=== PATIENT | female | born 1980 | race Caucasian/White ===

== ENCOUNTER 2017-08-11 20:50 | Emergency (ER) | payer OTHER ==
[2017-08-11 21:11] VITALS: BP 129/88
[2017-08-11] MEDS ORDERED: Tetracaine 0.5% OPTH.SOL 4 ML* 1 DROP BTL ONE (21:37)
[2017-08-11] MEDS ORDERED: Fluorescein Sodium TOPICAL* 1 MG TEST ONE (21:37)
[2017-08-11] MEDS ORDERED: Fluorescein Sodium TOPICAL* 1 MG TEST OPHTHALMIC ONE (21:40)
[2017-08-11] MEDS ORDERED: Tetracaine 0.5% OPTH.SOL 4 ML* 1 DROP BTL RIGHT EYE ONE (21:40)
--- NOTE | 2017-08-11 21:56 | ED ---
Throat Pain/Nasal Congestion - HPI Summary HPI Summary: 37 yr old with complaint of right eye pain, moderate intensity, since waking this morning. she states she has throbbing pain in the eye. She does not wear contact lenses. She has had bilateral lens replacements at a young age. She denies drainage. denies watering. Denies blurred vision. No family history of glaucoma. - History of Current Complaint Chief Complaint: UCEye Time Seen by Provider: 08/11/17 21:27 - Allergies/Home Medications Allergies/Adverse Reactions: Allergies Allergy/AdvReac Type Severity Reaction Status Date / Time Adhesive Tape Allergy Unknown Verified 08/11/17 21:11 Reaction Details Oxycodone [From Percocet] AdvReac Vomiting Verified 08/11/17 21:11 STERI STRIPS Allergy Blisters Uncoded 08/11/17 21:11 PMH/Surg Hx/FS Hx/Imm Hx Endocrine/Hematology History: Denies: Hx Diabetes, Hx Thyroid Disease Cardiovascular History: Denies: Hx Hypertension, Other Cardiovascular Problems/Disorders Respiratory History: Denies: Hx Asthma, Other Respiratory Problems/Disorders GI History: Denies: Other GI Disorders Musculoskeletal History: Reports: Hx Tendonitis - RIGHT THUMB Sensory History: Reports: Hx Cataracts - BILATERAL, Hx Contacts or Glasses - GLASSES Denies: Hx Hearing Aid Opthamlomology History: Reports: Hx Cataracts - BILATERAL, Hx Contacts or Glasses - GLASSES Neurological History: Denies: Other Neuro Impairments/Disorders Psychiatric History: Reports: Hx Anxiety - ON MEDS, Hx Depression - ON MEDICATION FOR - Surgical History Surgery Procedure, Year, and Place: ovarian cyst, 03/2013, [facility]. gall bladder, 2001, [facility]. L4/5 discectomy-11/2013-[facility]. uterine bIOPSY X 2. 03/28/14, right ankle fx, [facility]. 11/2015 - screws removed from right ankle (from previous fx) Hx Anesthesia Reactions: Yes - MEMORY LOSS Infectious Disease History: No Infectious Disease History: Denies: Traveled Outside the [place] in Last 30 Days - Family History Known Family History: Positive: Hypertension, Diabetes - Social History Alcohol Use: None Alcohol Amount: 2-3 DRINKS/WEEK Substance Use Type: Reports: None Substance Use Comment - Amount & Last Used: LAST USED 11/12/12 Smoking Status (MU): Heavy Every Day Tobacco Smoker Type: Cigarettes Amount Used/How Often: 1 PPD Length of Time of Smoking/Using Tobacco: APPROX 15 YRS Have You Smoked in the Last Year: Yes Review of Systems Positive: Erythema, Other - pain. Negative: Photophobia, Blurred Vision, Diplopia, Drainage Positive: Headache All Other Systems Reviewed And Are Negative: Yes Physical Exam Triage Information Reviewed: Yes Vital Signs On Initial Exam: Initial Vitals Temp Pulse Resp BP Pulse Ox 98.3 F 78 16 129/88 100 08/11/17 21:07 08/11/17 21:07 08/11/17 21:07 08/11/17 21:07 08/11/17 21:07 Vital Signs Reviewed: Yes Appearance: Positive: Well-Appearing, No Pain Distress Skin: Positive: Warm, Skin Color Reflects Adequate Perfusion Head/Face: Positive: Normal Head/Face Inspection Eyes: Positive: EOMI, WENDY, Conjunctiva Inflammed - laterally, no drainage., Other: - no flouroscein uptake in right eye. There is slight cloudy appearance to cornea. ENT: Positive: Pharynx normal Respiratory/Lung Sounds: Positive: Clear to Auscultation Cardiovascular: Positive: RRR. Negative: Murmur Abdomen Description: Negative: Distended Musculoskeletal: Positive: Strength/ROM Intact Neurological: Positive: Sensory/Motor Intact, Alert, Oriented to Person Place, Time, CN Intact II-III, Normal Gait Psychiatric: Positive: Normal Diagnostics - Vital Signs Vital Signs Temp Pulse Resp BP Pulse Ox 08/11/17 21:07 98.3 F 78 16 129/88 100 - Laboratory Lab Statement: Any lab studies that have been ordered have been reviewed, and results considered in the medical decision making process. EENT Course/Dx - Course Course Of Treatment: 37 yr old with pain and redness to eye without drainage. She signed ama refusal of transfer by ambulance to [facility]. I contacted transfer center and they will see patient. - Diagnoses Provider Diagnoses: Pain, eye, right Discharge - Discharge Plan Condition: Good Disposition: AGAINST MEDICAL ADVICE
== END 2017-08-11 21:58 | disposition left against medical advice (07) ==
LOC: UCCORT 20:50
DX: H92.01 Otalgia, right ear (principal); Z88.6 Allergy status to analgesic agent; Z91.048 Other nonmedicinal substance allergy status
CPT/HCPCS: 99212; A9270-GY; G0463

== ENCOUNTER 2018-07-15 08:29 | Emergency (ER) | payer OTHER ==
[2018-07-15 09:01] VITALS: BP 139/81
[2018-07-15] MEDS: Ibuprofen TAB* 600 MG PO ONE (09:42)
--- NOTE | 2018-07-15 10:22 | UC ---
Lower Extremity/Ankle HPI - HPI Summary HPI Summary: 38 year old with b/l foot pain. Right greater than left foot pain onset last eves/p fall down about 4 steps; increased pain with WB. Hx on right ankle fx 2012. Pain on right is at lateral metatarsal area, pain on left is mostly at great toe. Left arm, inner thigh bruising is more minor. Fall at home about 9 pm or so . no LOC no head trauma or other sinificant trauma. pain right foot 5/ 10 and left foot 8/10. difficulty walking and ambulating. - History of Current Complaint Chief Complaint: UCLowerExtremity Stated Complaint: SKIN COMPLAINT BILATERAL FEET Time Seen by Provider: 07/15/18 09:38 Hx Obtained From: Patient Hx Last Menstrual Period: 07/04/18 Onset/Duration: Sudden Onset Pain Intensity: 2 Aggravating Factor(s): Standing, Ambulation Alleviating Factor(s): Rest, Elevation Able to Bear Weight: Yes - Allergies/Home Medications Allergies/Adverse Reactions: Allergies Allergy/AdvReac Type Severity Reaction Status Date / Time Adhesive Tape Allergy Unknown Verified 08/11/17 21:11 Reaction Details oxycodone [From Percocet] Allergy Vomiting Verified 07/15/18 09:03 STERI STRIPS Allergy Blisters Uncoded 08/11/17 21:11 Home Medications: Home Medications Copper (Iud) [Paragard IUD] 1 unit IU DAILY 07/15/18 [History Confirmed 07/15/18 ] PMH/Surg Hx/FS Hx/Imm Hx Previously Healthy: Yes - Surgical History Surgical History: Yes Surgery Procedure, Year, and Place: ovarian cyst, 03/[facility], [facility]. gall bladder, 2001, [facility]. L4/5 discectomy-11/2013-[facility]. uterine bIOPSY X 2. 03/28/14, right ankle fx, [facility]. 11/2015 - screws removed from right ankle (from previous fx); right trigger thumb 2012, cataracts 2012. - Family History Known Family History: Positive: Hypertension, Diabetes - Social History Occupation: Employed Full-time Alcohol Use: Weekly Alcohol Amount: 2-3 DRINKS/WEEK Substance Use Type: None Substance Use Comment - Amount & Last Used: LAST USED 11/12/12 Smoking Status (MU): Heavy Every Day Tobacco Smoker Type: Cigarettes Amount Used/How Often: 1 PPD Length of Time of Smoking/Using Tobacco: APPROX 15 YRS Have You Smoked in the Last Year: Yes Household Exposure Type: Cigarettes - Immunization History Most Recent Influenza Vaccination: 2011 Most Recent Tetanus Shot: UNKNOWN Most Recent Pneumonia Vaccination: NEVER Review of Systems Motor: Decreased ROM Neurovascular: Negative Musculoskeletal: Arthralgia, Decreased ROM, Edema Is Patient Immunocompromised?: No All Other Systems Reviewed And Are Negative: Yes Physical Exam Triage Information Reviewed: Yes Appearance: Well-Appearing, Pain Distress - mild Vital Signs: Initial Vital Signs Temp 98.3 F 07/15/18 08:47 Pulse 86 07/15/18 08:47 Resp 18 07/15/18 08:47 BP 139/81 07/15/18 08:47 Pulse Ox 99 07/15/18 08:47 Vital Signs Reviewed: Yes Eyes: Positive: Conjunctiva Clear ENT: Positive: Hearing grossly normal Respiratory: Positive: No respiratory distress Cardiovascular: Positive: Pulses Normal, Brisk Capillary Refill Musculoskeletal Exam: Normal Musculoskeletal: Positive: Strength Intact, ROM Intact, No Edema, Other: - diffuse tenderness left foot at 1st MTP and forefoot. Right foot diffuse tenderness lateral aspect, dorsal aspect as well. normal sensation. Normal strength. neg homans. no ankle pain and neg homans sign Neurological Exam: Normal Psychological Exam: Normal Skin: Positive: Other - superficial abrsion dorsal aspect forefoot b/l and light ecchymosis left 1st MTP Diagnostics - Laboratory Diagnostic Studies Completed/Ordered: IMPRESSION: No fracture of the left foot is noted. IMPRESSION: No fracture of the right foot is noted. If there is continued clinical concern. follow-up imaging could BE performed. Lower Extremity Course/Dx - Course Course Of Treatment: xray neg. f/u with PCP. discussed RICE/NSAIDs./ start moving in the next day or two - Differential Dx/Diagnosis Differential Diagnosis/HQI/PQRI: Contusion, Fracture (Closed), Sprain, Strain, Tendonitis Provider Diagnoses: Left foot contusion with pain. Right foot contusion with pain Discharge - Sign-Out/Discharge Documenting (check all that apply): Patient Departure All imaging exams completed and their final reports reviewed: Yes - Discharge Plan Condition: Good Disposition: HOME Patient Education Materials: Foot Contusion (ED) Forms: *Work Release Referrals: Sally Cherry MD [Primary Care Provider] - 4 Days - Billing Disposition and Condition Condition: GOOD Disposition: Home Images Feet (Multiple View): 1 - ecchymosis 2 - superficial abrasion 3 - superficial abrasion 4 - tenderness to palpation
--- NOTE | 2018-07-15 10:28 | RAD ---
Indication: Left foot pain. 2 views of left foot are reviewed. No definite fracture or dislocation is noted. No other bone or joint abnormality is identified. If there is clinical concern of injury follow-up imaging should BE performed. IMPRESSION: No fracture of the left foot is noted.
--- NOTE | 2018-07-15 10:30 | RAD ---
Indication: Right foot injury 3 views of the right foot demonstrates no fracture. No other bone or joint abnormality is identified. IMPRESSION: No fracture of the right foot is noted. If there is continued clinical concern follow-up imaging could BE performed.
== END 2018-07-15 11:05 | disposition home or self-care (01) ==
LOC: UCCORT 08:29
DX: S90.32XA Contusion of left foot, initial encounter (principal); S90.31XA Contusion of right foot, initial encounter; M79.672 Pain in left foot; M79.671 Pain in right foot; W10.9XXA Fall (on) (from) unspecified stairs and steps, initial encounter; Y93.9 Activity, unspecified; Y92.9 Unspecified place or not applicable; Z88.5 Allergy status to narcotic agent; F17.210 Nicotine dependence, cigarettes, uncomplicated
CPT/HCPCS: 99212; A9270-GY; G0463

== ENCOUNTER 2019-09-09 07:29 | Day surgery (SDC) | payer OTHER ==
--- NOTE | 2019-08-25 16:13 | HP ---
PREOPERATIVE HISTORY AND PHYSICAL: DATE OF SURGERY/ADMISSION: 09/09/19 [facility] ATTENDING SURGEON: Monet Benedict MD * (DICTATED BY JOVANY DSOUZA) PROCEDURE: Right thumb carpometacarpal joint arthroplasty. DATE OF OFFICE VISIT/ENCOUNTER: 08/22/19 HISTORY OF PRESENT ILLNESS: This is a 39-year-old female who complains of pain at the base of her right thumb. This has been ongoing for over a year now. She has received 2 cortisone injections over time, which were helpful, however, the second one was less helpful than the first. 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 In addition to trying cortisone injections, she has tried a thumb spica brace and also physical therapy, unfortunately the pain persists. 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 She denies any injury. She denies any associated numbness or tingling. She would like to proceed with surgery at this time in the form of a right thumb CMC joint arthroplasty. PAST MEDICAL HISTORY: History of anxiety/depression. PAST SURGICAL HISTORY: 1. Cholecystectomy. 2. Ovarian cystectomy. 3. Open reduction internal fixation, right ankle with subsequent hardware removal. 4. Bilateral cataract removal. 5. Right trigger thumb release. 6. Lumbar discectomy L4-L5. CURRENT MEDICATIONS: 1. Clindamycin phosphate benzoyl peroxide 1-5% apply daily. 2. Retin-A 0.01% apply to face nightly. 3. Ibuprofen p.r.n. ALLERGIES: PERCOCET causes blurred/double vision and ADHESIVES. FAMILY HISTORY: Diabetes, heart disease, stroke. 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 She is a current smoker. She smokes a pack per day and has done so for 20 years. She also smokes marijuana on rare occasion. She drinks alcohol on occasion. REVIEW OF SYSTEMS: Negative for general, cephalic, cardiovascular, respiratory , GI/, other musculoskeletal, integumentary, endocrine, neurologic, and hematologic symptoms. Infectious disease negative for MRSA, hepatitis C, HIV. PHYSICAL EXAMINATION GENERAL: Well-developed, well nourished 39-year-old female in on acute distress. VITAL SIGNS: Height 5 feet 9 and 1/4 inches, weight 211pounds, pulse rate 68, blood pressure 114/74. HEENT: Normocephalic, atraumatic. Pupils are equal, round and reactive to light and accommodation. Extraocular movements are intact. NECK: Supple. No palpable lymph nodes. Throat is clear. PULMONARY: Lungs are clear to auscultation bilaterally. No wheezes, rales or rhonchi. CARDIOVASCULAR : Regular rate and rhythm. S1, S2. No murmurs, rubs or gallop. No edema. ABDOMEN: Positive bowel sounds, soft, nontender. MUSCULOSKELETAL: On exam of her right thumb, she has tenderness to palpation at the CMC joint. Negative grind test. Pain with trying to fully oppose the thumb, but she has good motion in opposition and abduction. Skin is intact. Neurovascular function is intact. NEUROLOGIC: Alert and oriented x3. Cranial nerves II through XII are intact. Sensation is intact to light touch. DIAGNOSTIC STUDIES: X-rays and MRI show degenerative changes at the right thumb CMC joint. Impression as above. IMPRESSION: The patient is scheduled to undergo a right thumb carpometacarpal joint arthroplasty with Dr. Benedict on 09/09/19. PLAN: She will return to the office in 10 days postop for followup and suture removal. A prescription for Frederic was e-scribed to the patient's pharmacy for postoperative pain management. JOVANY DSOUZA [id number]/[facility] #: [id number] [facility]
[~2019-09-09 07:29] MED LIST: Buffered Lidocaine 1% SYRIN* 1 ML/SYRINGE INTRADERM ONE; Lactated Ringers 1000 ML Bag* 1,000 ML IV SCH
[2019-09-09] MEDS ORDERED: ceFAZolin 2 GM in NS PREMIX(*) 2 GM/100 ML BAG IVPB ONE (07:41)
[2019-09-09] MEDS ORDERED: Bupivacaine 0.5% SDV PF* 30ML VIAL ONE (07:50)
[2019-09-09] MEDS ORDERED: Midazolam* 1 MG/ML 2 ML VIAL (2 MG) ONE (08:02)
[2019-09-09] MEDS ORDERED: fentaNYL* 50 MCG/ML 2 ML VIAL (100 MCG VIAL) ONE (08:03)
[2019-09-09] MEDS ORDERED: Naloxone* 0.4 MG/ML 1 ML VIAL IV PRN (09:10)
[2019-09-09] MEDS ORDERED: fentaNYL* 50 MCG/ML 2 ML VIAL (100 MCG VIAL) IV PRN (09:10)
[2019-09-09] MEDS ORDERED: Acetaminophen TAB* 325 MG PO PRN (09:10)
[2019-09-09] MEDS ORDERED: HYDROcodone/ACETAMIN 5-325 MG* 1 TAB PO PRN (09:10)
[2019-09-09] MEDS ORDERED: DiMENhydriNATE IV* 50 MG/ML VIAL IV PUSH PRN (09:10)
[2019-09-09] MEDS ORDERED: Propofol* 10 MG/ML 20 ML BTL ONE (09:11)
[2019-09-09] MEDS ORDERED: Ketorolac INJ* 30 MG/ML 1 ML VIAL ONE (09:11)
[2019-09-09] MEDS ORDERED: Ondansetron INJ* 2 MG/ML VIAL ONE (09:11)
[2019-09-09] MEDS ORDERED: Dexamethasone IV* 4 MG/ML 1 ML (4 MG) ONE (09:11)
[2019-09-09] MEDS ORDERED: Metoclopramide IV* 5 MG/ML 2 ML VIAL ONE (09:11)
[2019-09-09 10:17] VITALS: BP 111/73
--- NOTE | 2019-09-09 18:39 | OP ---
DATE OF OPERATION: 09/09/19 [facility] DATE OF : 82 SURGEON: Monet Benedict MD SENIOR SALESFORCE DEVELOPER: JOVANY Verma ANESTHESIA: General. PRE-OP DIAGNOSIS: Right thumb carpometacarpal arthritis. POST-OP DIAGNOSIS: Right thumb carpometacarpal arthritis. OPERATIVE PROCEDURE: Right thumb CMC arthroplasty. ESTIMATED BLOOD LOSS: Zero. TOURNIQUET TIME: About 40 minutes. INDICATIONS FOR PROCEDURE: Whitney is a 39-year-old female, who has painful arthritis at the base of her right thumb. She presents for CMC arthroplasty after failing conservative treatment. DESCRIPTION OF PROCEDURE: The patient was brought to the operating room, was given a general anesthetic and placed in the supine position on the operating table with a tourniquet around her right upper arm. The skin of her right upper extremity was prepped and draped in the usual sterile fashion. The upper extremity was exsanguinated and the tourniquet elevated to 250 mmHg. A curved incision was made centered at the thumb CMC joint and we dissected bluntly through the subcutaneous tissue. Branches of the radial sensory nerve were located and retracted by the furniture removalist's assistant, Neeta Arriola. The APL and EPB tendons were also retracted and then a distally based U-shaped flap was created at the thumb CMC joint. Prior to the flap being created, the radial artery was carefully dissected off of the CMC joint capsule and retracted by the furniture removalist's assistant, Neeta Arriola, whose assistance was necessary for safe completion of the case. The joint capsule was subperiosteally dissected off of the trapezium and the trapezium was removed in its entirety. The wound was copiously irrigated with saline. The CMC joint capsule was secured to the FCR tendon and the floor of the wound and this put the metacarpal in a very nicely abducted position. There was no hyperextension of the MP joint. The remainder of the capsule was closed in interrupted fashion with 4-0 nylon suture and then the skin edges were reapproximated with 4-0 nylon suture. The wound was dressed with Xeroform, 4x4, Webril, and a thumb spica splint which kept the metacarpal abducted. The patient was awakened from general anesthesia and brought to the recovery room in good condition. [id number]/[facility] #: [id number] [facility] SYSTEMBradley
== END 2019-09-09 10:35 | disposition home or self-care (01) ==
LOC: OREAST 07:29
PROVIDERS: ATTEND Orthopaedic Surgery
DX: M18.11 Unilateral primary osteoarthritis of first carpometacarpal joint, right hand (principal); F17.210 Nicotine dependence, cigarettes, uncomplicated; F41.8 Other specified anxiety disorders
CPT/HCPCS: 81025; 88304; 88311; J0690; J1100; J1885; J2250; J2405; J2704; J2765; J3010; J3490